=== PATIENT | female | born 1985 | race Caucasian/White ===

== ENCOUNTER → 2016-09-04 | Outpatient (CLI) | payer OTHER ==
--- NOTE | 2016-09-04 22:55 | US ---
EXAMINATION TYPE: US thyroid st tissue head/neck DATE OF EXAM: 09/04/2016 4:12 PM COMPARISON: NONE CLINICAL HISTORY: 30-year-old female, physician felt enlarged gland. Thyroid nodule. TECHNIQUE: Multiple sonographic images of the thyroid gland are obtained. FINDINGS: Right Lobe: 4.0 x 1.5 x 1.1 cm Left Lobe: 4.0 x 1.5 x 1.3 cm Isthmus Thickness: 0.2 cm There is mild heterogeneity of the glandular parenchyma without discrete nodule. IMPRESSION: Thyroid gland measurements as above fall within normal limits. No discrete nodule.
== END | disposition home or self-care (01) ==
LOC: RADUSWWP 16:00
PROVIDERS: ATTEND Family Medicine
DX: E04.9 Nontoxic goiter, unspecified (principal)
CPT/HCPCS: 76536

== ENCOUNTER → 2017-01-29 | Outpatient (CLI) | payer OTHER ==
[2017-01-29 17:14] LABS: Basophils % (A) 1 %; CH 31.6; CHCM 34.3; Eosinophils # (A) 0.1 k/uL (0-0.7); Eosinophils % (A) 1 %; HDW 2.48; HGB 13.8 gm/dL (11.4-16.0); Luc # (Auto) 0.12; Luc % (Auto) 2; Lymphocytes # (A) 2.2 k/uL (1.0-4.8); Lymphocytes % (A) 32 %; MCHC 33.5 g/dL (31.0-37.0); MCV 92.3 fL (80.0-100.0); Mean Platelet Volume 6.8; Monocytes # (A) 0.3 k/uL (0-1.0); Monocytes % (A) 4 %; Neutrophils # (A) 4.3 k/uL (1.3-7.7); Neutrophils % (A) 61 %; RBC 4.44 m/uL (3.80-5.40); RDW 13.5 % (11.5-15.5); WBC (Perox) 7.05
== END | disposition home or self-care (01) ==
LOC: LABPAT 16:53
PROVIDERS: ATTEND Obstetrics & Gynecology
DX: Z01.812 Encounter for preprocedural laboratory examination (principal)
CPT/HCPCS: 85025

== ENCOUNTER 2017-02-06 06:24 | Day surgery (SDC) | payer OTHER ==
[2017-02-03 11:30] VITALS: BMI 27.4
--- NOTE | 2017-02-04 18:19 | P.HPOB ---
History of Present Illness H&P Date: 02/04/17 Chief Complaint: Patient is requesting tubal ligation for permanent sterilization. This patient is a pleasant 31-year-old 2 para 2 female who presented to my office requesting laparoscopic tubal cauterization for permanent sterilization. She knife had multiple discussions in forms of control this is the method she has chosen. Review of Systems Constitutional: Denies chills, Denies fever Ears, nose, mouth and throat: Denies headache, Denies sore throat Cardiovascular: Denies chest pain, Denies shortness of breath Respiratory: Denies cough Gastrointestinal: Denies abdominal pain, Denies diarrhea, Denies nausea, Denies vomiting Genitourinary: Denies dysuria, Denies hematuria Menstruation: Reports period normal Musculoskeletal: Denies myalgias Integumentary: Denies pruritus, Denies rash Neurological: Denies numbness, Denies weakness Psychiatric: Denies anxiety, Denies depression Past Medical History Past Medical History: No Reported History History of Any Multi-Drug Resistant Organisms: None Reported Past Surgical History: Adenoidectomy, Section, Tonsillectomy Past Anesthesia/Blood Transfusion Reactions: Family History of Problems w/ Anesthesia Additional Past Anesthesia/Blood Transfusion Reaction / Comment(s): First cousin on her mother's side had Malignant Hyperthermia. Past Psychological History: No Psychological Hx Reported Smoking Status: Never smoker Past Alcohol Use History: None Reported Past Drug Use History: None Reported - Past Family History Mother Family Medical History: No Reported History Medications and Allergies Home Medications Medication Instructions Recorded Confirmed Type No Known Home Medications [No 02/03/17 02/03/17 History Known Home Medications] Allergies Allergy/AdvReac Type Severity Reaction Status Date / Time hydrocodone bitartrate AdvReac Nausea & Verified 02/03/17 11:17 [From Vicodin] Vomiting & Diarrhea Exam - Vital Signs Vital signs: Intake and Output 02/04/17 02/04/17 02/04/17 06:59 14:59 22:59 Other: Weight 77.564 kg Patient Weight 02/05/17 06:59 Weight 77.564 kg - OBG Physical Exam Abdomen: bowel sounds normal, no diffuse tenderness, no bruit present, no guarding noted, no hepatomegaly, no splenomegaly, no mass Vulva: both: normal Vagina: normal moisture, no discharge Cervix: no lesion, no discharge Uterus: normal size, normal contour Adnexa: both: normal Assessment and Plan (1) Family planning Narrative/Plan: This is a pleasant 31-year-old 2 para 2 female requesting laparoscopic tubal cauterization for permanent sterilization. Patient and I have discussed the surgery in detail. Patient understands this is considered permanent, however there is a failure rate of approximately 20-25 per thousand procedures done. She understands that if she did become she has a 50% chance of a tubal or an ectopic . Patient I also discussed the fact that this is an elective surgery and does have risks including risks of infection, bleeding, possible injury to bowel, bladder, vessels, and/or other organs. She understands alternatives to the surgery exist. All the patient's questions are answered and a written consent is obtained. Plan is laparoscopic bilateral fallopian tube cauterization. Status: Acute
[~2017-02-06 06:24] MED LIST: DEXAMETHASONE SOD PHOSPHATE 10 MG/ML 1 ML VIAL IV ONE; LACTATED RINGERS 1,000 ML IV SCH; ONDANSETRON 4 MG/2 ML VIAL IVP ONE; Pre Op ABX Message 1 EACH MISC MISCELLANE ONE
[2017-02-06 06:39] VITALS: RESP 18
[2017-02-06] MEDS ORDERED: LACTATED RINGERS 1,000 ML IV ONE (06:48)
[2017-02-06] MEDS ORDERED: LIDOCAINE 1% 20 ML VIAL (10MG/ML) FOR IV START INTRADERMA ONE (06:49)
[2017-02-06] MEDS ORDERED: ROCURONIUM BROMIDE 10 MG/ML 10 ML VIAL IV ONE (07:21)
[2017-02-06] MEDS ORDERED: NEOSTIGMINE 1 MG/ML 10 ML VIAL ONE (07:21)
[2017-02-06] MEDS ORDERED: BUPIVACAINE (PF) 0.5% 30 ML VIAL SQ ONE (07:21)
[2017-02-06] MEDS ORDERED: fentaNYL (PF) 50 MCG/ML 2 ML AMP ONE (07:21)
[2017-02-06] MEDS ORDERED: PROPOFOL 10 MG/ML 20 ML VIAL IV ONE (07:21)
[2017-02-06] MEDS ORDERED: LIDOCAINE 1% INJ 10MG/ML (20 ML MDV) ONE (07:21)
[2017-02-06] MEDS ORDERED: ACETAMINOPHEN IV (For NPO) 1,000 MG/100 ML VIAL ONE (07:21)
[2017-02-06] MEDS ORDERED: GLYCOPYRROLATE 0.2 MG/ML 2 ML VIAL ONE (07:21)
[2017-02-06] MEDS ORDERED: KETOROLAC 30 MG/ML 1 ML VIAL ONE (07:21)
[2017-02-06] MEDS ORDERED: MIDAZOLAM 2 MG/2 ML VIAL ONE (07:21)
--- NOTE | 2017-02-06 08:11 | P.OP ---
Date of Procedure: 02/06/17 Preoperative Diagnosis: Multi parity desires permanent sterilization. Postoperative Diagnosis: Same Procedure(s) Performed: Laparoscopic bilateral partial fallopian tube cauterization. Implants: Anesthesia: WHITA Surgeon: Pedro Pablo Kincaid Estimated Blood Loss (ml): 20 Urine output (ml): 50 Pathology: none sent Condition: stable Disposition: PACU Indications for Procedure: Please see dictated H&P for intimate details of this patient's admission. Brief summary is a pleasant 31-year-old multigravida patient is requesting laparoscopic tubal cauterization for permanent sterilization. Patient I have discussed various options for control and this is the method she has chosen. She understands this is permanent, however there is a failure rate of approximately 20-25 per thousand procedures done. She also understands that if she does become she has a 50% chance of tubal, or ectopic . Patient understands laparoscopic surgery and apparently has risks including risks of infection, bleeding, possible injury to bowel, bladder, vessels, and other organs. All the patient's questions are answered and a written consent is obtained. Operative Findings: This patient had normal-appearing uterus tubes and ovaries. Description of Procedure: This patient is taken to the operating room where she is laid in the supine position. She subsequent undergoes general endotracheal anesthesia without incident. With an adequate level of anesthesia she has a vaginal perineal abdominal prep and drape. She's placed in dorsal lithotomy position. I first good on below placed a speculum into the vagina visualizing the cervix. Using an Allis clamp attached this to the anterior lip of the cervix. A large acorn cannula is then gently placed in the endocervix and attached to the Allis clamp. The speculum is removed and a red Ferreira catheters placed in the bladder for 50 mL of urine and left in place. Then changed gloves and go up above. Scalpel is taken and a 1 cm infraumbilical incision is made. Using a 10 mm bladed lists optical trocar I placed the trocar into the peritoneum under direct visualization. Pneumoperitoneum was then created to 12 mm of carbon dioxide gas. Approximately 2 fingerbreadths above the symphysis pubis through the previous scar make a 5 mm incision through this a 5 mm bladed lists trochars placed again under direct visualization. With this done a blunt probe was used to move the uterus tubes and ovaries around all appears normal. Using bipolar cautery I then grasped the left fallopian tube approximately 4 cm from its cornual insertion and a 2-3 cm segment of the tube was completely cauterized as demarcated by the volt meter. With this done I turned my attention a right fallopian tube and using a similar technique we have similar results. With this completed the lower trochars then removed and good hemostasis is noted. Pneumoperitoneum was reduced and the upper trochars removed. Both incisions are closed using 4-0 Vicryl in interrupted fashion. Steri-Strips and sterile dressing is applied. Approximately 5 mL of half percent Marcaine is injected into both sides for postoperative pain control. Excellent hemostasis is noted. I then good on below remove the Allis clamp and acorn cannula and catheter. All counts are correct 3. There are no complications. Patient is awakened from anesthesia and taken to the recovery room in satisfactory condition.
[2017-02-06 08:19] VITALS: TEMP 97.4
[2017-02-06] MEDS: HYDROmorphone 1 MG/ML 1 ML SYRINGE IVP PRN ×2 (08:21→08:25)
[2017-02-06] MEDS ORDERED: Acetaminophen-Codeine 300-30mg TAB PO ONE (09:08)
[2017-02-06 09:20] VITALS: BP 110/74; PULSE 68
== END 2017-02-06 10:08 | disposition home or self-care (01) ==
LOC: OR 06:24
PROVIDERS: ATTEND Obstetrics & Gynecology
DX: Z30.2 Encounter for sterilization (principal); Z88.5 Allergy status to narcotic agent
CPT/HCPCS: 81025; 58670; J2250; J1100; J2710; J2405; J2001; J3010; J1885; J1170; J0131; J2704

== ENCOUNTER → 2019-03-24 | Outpatient (CLI) | payer BC ==
--- NOTE | 2019-03-24 14:20 | CT ---
EXAMINATION TYPE: CT brain wo/w con DATE OF EXAM: 03/24/2019 COMPARISON: 05/02/2015 INDICATION: Migraines DLP: 2369 mGycm, Automated exposure control for dose reduction was used. CONTRAST: Isovue-300, [address] of the brain is performed utilizing 3 mm thick sections through the posterior fossa and 3 mm thick sections through the remaining calvarium. Study is performed within 24 hours of arrival to the hosp ital. No abnormal hyperdensity is present to suggest an acute intracranial hemorrhage. No mass lesion is evident. No acute infarcts are evident. Ventricles and sulci are appropriate for the patient age. Paranasal sinuses and mastoid air cells within the wywvx-[id number]-nodp are clear. No abnormal enhancement is evident. IMPRESSIONS: 1. Normal pre and postcontrast CT Brain
== END | disposition home or self-care (01) ==
LOC: RADCTMAIN 06:57
PROVIDERS: ATTEND Family Medicine
DX: G43.909 Migraine, unspecified, not intractable, without status migrainosus (principal); Z88.6 Allergy status to analgesic agent
CPT/HCPCS: 70470; Q9967

== ENCOUNTER 2023-09-06 19:30 | Emergency (ER) | payer OTHER ==
[2023-09-06 19:45] VITALS: RESP 20; TEMP 98.2
[2023-09-06] MEDS ORDERED: ORPHENADRINE 30 MG/ML 2 ML VIAL IM STA (20:02)
[2023-09-06] MEDS ORDERED: ACETAMINOPHEN TAB 500 MG TAB PO STA (20:14)
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
--- NOTE | 2023-09-06 20:27 | XR ---
EXAMINATION TYPE: XR cervical spine comp DATE OF EXAM: 09/06/2023 CLINICAL HISTORY: pain COMPARISON: NONE TECHNIQUE: Frontal, lateral, oblique, swimmers, and open mouth view of the cervical spine are obtaine d. FINDINGS: The cervical spine is visualized in its entirety from C1 thru the top of T1 level. It is s atisfactory in alignment without evidence of acute fracture or dislocation. The pre-vertebral soft t issue appears within normal limits. Disc spaces are well preserved. The C1-C2 articulation is unremar kable on the open mouth view. The oblique images are within normal limits. IMPRESSION: No acute fracture or dislocation is seen in the cervical spine.ICD 10 NO FRACTURE, INITI AL EVALUATION
--- NOTE | 2023-09-06 20:28 | XR ---
EXAMINATION TYPE: XR thoracic spine 2V DATE OF EXAM: 09/06/2023 CLINICAL HISTORY: pain TECHNIQUE: Frontal, lateral, and swimmer's view of thoracic spine are obtained. COMPARISON: None. FINDINGS: Thoracic spine show satisfactory alignment without evidence of acute fracture or dislocatio n. Vertebral body heights are preserved. Disc spaces are well preserved. Visualized ribs are unrem arkable. IMPRESSION: No acute fracture or dislocation is seen in the thoracic spine. ICD 10 NO FRACTURE, INIT IAL EVALUATION
[2023-09-06 22:00] VITALS: BP 103/70; PULSE 82
== END 2023-09-06 21:48 | disposition home or self-care (01) ==
LOC: EC 19:30
DX: S70.312A Abrasion, left thigh, initial encounter (principal); T24.212A Burn of second degree of left thigh, initial encounter; F12.90 Cannabis use, unspecified, uncomplicated; Z88.5 Allergy status to narcotic agent; Z87.891 Personal history of nicotine dependence; V89.2XXA Person injured in unspecified motor-vehicle accident, traffic, initial encounter; Y92.410 Unspecified street and highway as the place of occurrence of the external cause
CPT/HCPCS: 72070; 72050; 16020; 99284; 96372; J2360